=== PATIENT | male | born 1985 | race Caucasian/White ===

== ENCOUNTER 2016-11-04 16:18 | Emergency (ER) | payer OTHER ==
[~2016-11-04] VITALS: Ht 177.8 cm; Wt 74.4 kg
[~2016-11-04 16:18] MED LIST: IBUP-1277 PO; TYLOTC500 PO
[2016-11-04 16:22] VITALS: TEMP 37.1; Ht 177.8 cm; Wt 74.4 kg
--- NOTE | 2016-11-04 19:33 | EMERGENCY ROOM VISIT NOTE ---
History Report prepared by Narinder: Keagan Reagan Under the Supervision of: Dr. Simone Cruz D.O. First contact with patient: 16:59 Chief Complaint: OTHER COMPLAINT Stated Complaint: EXPOSURE TO POSSIBLE MUMPS, WANTS CHECKED FOR LYME History of Present Illness The patient is a 31 year old male who presents to the Emergency Room with complaints of a request for a check for mumps. He notes his was in the ER last night because she thought she had mumps and she had recent exposure to mumps. The patient reports that he received a call from the [facility] today indicating that he should present to the ER today get tested. He notes that he has no symptoms. The patient also is interested in getting tested for lyme's as he was bit by a tick 4 months ago and is having back pain. Source of History: patient Onset: today Position: other (global) Quality: other (request for mumps test) Timing: other (episode) Associated Symptoms: + back pain Review of Systems See HPI for pertinent positives & negatives. A total of 10 systems reviewed and were otherwise negative. Past Medical & Surgical Medical Problems: (1) IRRITABLE BOWEL SYNDROME (2) Migraine Family History FH: cancer FH: heart disease FH: lung disease Hypertension Social History Smoking Status: Current Every Day Smoker Drug Use: none Marital Status: Housing Status: lives with family Occupation Status: employed Current/Historical Medications Scheduled PRN Ibuprofen (Advil), 200-600 MG PO Q6H PRN for Pain or Fever Allergies Uncoded Allergies: GRAPE JUICE (Allergy, Unknown, ., 08/05/15) Physical Exam Vital Signs Date Time Temp Pulse Resp B/P Pulse Ox O2 Delivery O2 Flow Rate FiO2 11/04/16 18:15 63 18 123/78 98 Room Air 11/04/16 16:22 37.1 70 18 134/87 99 Room Air Physical Exam CONSTITUTIONAL/VITAL SIGNS: Reviewed / noted above. GENERAL: Non-toxic in appearance. INTEGUMENTARY: Warm, dry, and [place]. HEAD: Normocephalic. EYES: without scleral icterus or trauma. ENT/OROPHARYNX: clear and moist. LYMPHADENOPATHY/NECK: Is supple without lymphadenopathy or meningismus. RESPIRATORY: Lungs clear and equal. CARDIOVASCULAR: Regular rate and rhythm. GI/ABDOMEN: Soft and nontender. No organomegaly or pulsatile mass. No rebound or guarding. Normal bowel sounds. EXTREMITIES: Warm and well perfused. BACK: No CVA tenderness. NEUROLOGICAL: Intact without focal deficits. PSYCHIATRIC: normal affect. MUSCULOSKELETAL: Normally developed with good muscle tone. Medical Decision & Procedures Laboratory Results Test 11/04/16 17:30 Lyme Disease IgG Antibody NEG (NEG) Laboratory results as stated above per my review. ED Course 170: Previous medical records were reviewed. The patient was evaluated in room C2B. A complete history and physical examination was performed. Medical Decision Differential includes viral illness, influenza, streptococcal pharyngitis, meningitis, pneumonia, sinusitis, UTI, pyelonephritis, otitis media. This is a 31-year-old male who presents to the ED with a chief complaint of being exposed possibly to mumps. He states that the [facility] contacted his to see how she was doing and told him he should get checked. He is asymptomatic. While he is here, he requested a Lyme test. He was negative for Lyme. A mumps testing was done. He was discharged. Impression Primary Impression: Exposure to communicable disease Scribe Attestation The scribe's documentation has been prepared under my direction and personally reviewed by me in its entirety. I confirm that the note above accurately reflects all work, treatment, procedures, and medical decision making performed by me. Departure Information Referrals No Doctor, Assigned (PCP) Patient Instructions My [facility] Additional Instructions Lyme test is negative. You may go back to work. If you develop any symptoms such as fevers, swelling of your neck or face, headaches, vomiting or other symptoms, return for reevaluation or see her doctor.
[2016-11-04 20:05] VITALS: BP 140/81; PULSE 68; O2SAT 98
== END 2016-11-04 20:52 | disposition home or self-care (01) ==
LOC: C.EDB 16:20 → C.EDC 20:52
DX: Z20.89 Contact with and (suspected) exposure to other communicable diseases (principal); F17.200 Nicotine dependence, unspecified, uncomplicated; Z82.49 Family history of ischemic heart disease and other diseases of the circulatory system